=== PATIENT | female | born 1955 | race African-American/Black ===

== ENCOUNTER 2017-05-03 09:33 | Emergency (ER) | payer MEDICAID ==
[~2017-05-03] VITALS: Ht 170.2 cm; Wt 100.0 kg
[~2017-05-03 09:33] MED LIST: HYDR25TA PO; LEVO75TA PO
[2017-05-03] MEDS ORDERED: HYDR-519 PO (09:39)
[2017-05-03] MEDS ORDERED: MORP15TA67 PO (09:39)
[2017-05-03 10:01] VITALS: BP 135/82
== END 2017-05-03 10:25 | disposition home or self-care (01) ==
LOC: ER 10:01
DX: M54.40 Lumbago with sciatica, unspecified side (principal); G89.29 Other chronic pain; I10 Essential (primary) hypertension; E11.9 Type 2 diabetes mellitus without complications; F17.210 Nicotine dependence, cigarettes, uncomplicated; Z76.5 Malingerer [conscious simulation]
CPT/HCPCS: 82962; 99282; Z7610

== ENCOUNTER 2017-05-03 10:52 | Emergency (ER) | payer MEDICAID ==
[~2017-05-03] VITALS: Ht 170.2 cm; Wt 100.0 kg
[~2017-05-03 10:52] MED LIST changes: +HYDR-519 PO; +MORP15TA67 PO
[2017-05-03 13:11] VITALS: BP 135/103
[2017-05-03] MEDS ORDERED: CYCLOBENZAPRINE 10MG TABLET PO ONE (13:15)
[2017-05-03] MEDS ORDERED: KETOROLAC 60MG/2ML VIAL IM ONE (13:15)
== END 2017-05-03 13:50 | disposition left against medical advice (07) ==
LOC: ER 13:07
DX: M54.40 Lumbago with sciatica, unspecified side (principal); G89.29 Other chronic pain; E03.9 Hypothyroidism, unspecified; I10 Essential (primary) hypertension; F17.210 Nicotine dependence, cigarettes, uncomplicated; G43.909 Migraine, unspecified, not intractable, without status migrainosus
CPT/HCPCS: 96372; 99283; J1885; Z7610